=== PATIENT | female | born 1950 | race Two or more races ===

== ENCOUNTER 2020-08-01 07:33 | Outpatient (CLI) | payer OTHER | END 2020-08-01 07:46 | disposition home or self-care (01) | LOC: LAB 07:33 | PROVIDERS: ATTEND Orthopaedic Surgery | DX: D64.89 Other specified anemias (principal); E56.1 Deficiency of vitamin K; N39.0 Urinary tract infection, site not specified; E55.9 Vitamin D deficiency, unspecified; M85.88 Other specified disorders of bone density and structure, other site; E21.2 Other hyperparathyroidism; E88.89 Other specified metabolic disorders; M81.8 Other osteoporosis without current pathological fracture ==

== ENCOUNTER 2021-07-19 10:34 | Outpatient (CLI) | payer OTHER | END 2021-07-19 10:42 | disposition home or self-care (01) | LOC: RAD 10:34 | PROVIDERS: ATTEND Orthopaedic Surgery | DX: M25.561 Pain in right knee (principal); M25.551 Pain in right hip ==

== ENCOUNTER 2022-10-31 07:44 | Outpatient (CLI) | payer OTHER | END 2022-10-31 07:47 | disposition home or self-care (01) | LOC: SONOGRAMA 07:44 | PROVIDERS: ATTEND Pathology Anatomic Pathology & Clinical Pathology | DX: D34 Benign neoplasm of thyroid gland (principal); E04.9 Nontoxic goiter, unspecified ==